=== PATIENT | female | born 1965 | race Two or more races ===

== ENCOUNTER 2017-07-28 15:11 | Emergency (ER) | payer OTHER ==
[2017-07-28 15:28] VITALS: TEMP 98.4; BMI 20.9
[2017-07-28] MEDS ORDERED: ASPIRIN 81 MG CHEWABLE TABLETS PO ONE (16:25)
--- NOTE | 2017-07-28 16:25 | PDOC ---
History of Present Illness - General Chief Complaint: Chest Pain Stated Complaint: CHEST PAIN Past History - Past Medical History Allergies/Adverse Reactions: Allergies Allergy/AdvReac Type Severity Reaction Status Date / Time No Known Allergies Allergy Verified 07/28/17 15:28 HTN: Yes - Suicide/Smoking/Psychosocial Hx Smoking History: Never smoked Have you smoked in the past 12 months: No Information on smoking cessation initiated: No Hx Alcohol Use: No Drug/Substance Use Hx: No Substance Use Type: None *Physical Exam - Vital Signs Last Vital Signs Temp Pulse Resp BP Pulse Ox 98.4 F 70 18 176/108 100 07/28/17 15:25 07/28/17 15:25 07/28/17 15:25 07/28/17 15:25 07/28/17 15:25
[2017-07-28] MEDS ORDERED: ASPIRIN 81 MG CHEWABLE TABLETS ONE (16:39)
--- NOTE | 2017-07-28 16:42 | PDOC ---
Attending Attestation - Resident Resident Name: Chris Vanel - ED Attending Attestation I have performed the following: I have examined & evaluated the patient, The case was reviewed & discussed with the resident, I agree w/resident's findings & plan, Exceptions are as noted - HPI HPI: 07/28/17 17:36 52 yo female presents because of intermittent "pinching" chest pain for several years and today she felt short of breath. She reports having a brief syncopal episode ( for a few seconds) yesterday -she came today with her who had a follow visit also at this hospital. she said she could get a ekg at her PCP on . she still has her regular monthly menses and described this episode as feeling suddenly very hot ,very flushed and dizzy. It lasted a short time. -she never had substernal chest pain 07/28/17 18:49 - Physicial Exam PE: 07/28/17 18:53 wnwd 52 yo female in no acute distress HEENT wnl lungs cta b/l cvs [id number] abd soft ,nontender ext no edema neuro no gross focal neuro deficits - Medical Decision Making 07/28/17 18:54 labs reviewed with pt ekg was nsr @ 68 bpm/negative trop -pt encouraged to followup with her PCP this week
[2017-07-28 17:04] LABS: BASOPHIL 0.6 % (0-2.0); EOSINOPHIL 3.3 % (0-4.5); MCH 30.7 pg (25.7-33.7); MCHC 32.7 g/dl (32.0-36.0); MEAN CELL VOLUME 93.7 fl (80-96); NEUTROPHILS 60.7 % (42.8-82.8); PLATELET COUNT 315 K/MM3 (134-434); RDW 13.9 % (11.6-15.6); WHITE BLOOD COUNT 9.5 K/mm3 (4.0-10.0)
[2017-07-28 17:05] LABS: URINE APPEARANCE CLEAR; URINE BILIRUBIN NEGATIVE (NEGATIVE); URINE BLOOD 1+ (NEGATIVE); URINE COLOR STRAW; URINE GLUCOSE (UA) NEGATIVE (NEGATIVE); URINE KETONE NEGATIVE (NEGATIVE); URINE NITRITE NEGATIVE (NEGATIVE); URINE PROTEIN NEGATIVE (NEGATIVE); URINE UROBILINOGEN NEGATIVE mg/dL (0.2-1.0)
[2017-07-28 17:09] LABS: URINE BACTERIA RARE /hpf (NONE SEEN); URINE RBC <1 /hpf (0-3); URINE WBC 1 /hpf (3-5)
[2017-07-28 17:24] LABS: INR 0.9 (0.82-1.09); PROTHROMBIN TIME (PATIENT) 10.2 SEC (9.98-11.88)
[2017-07-28 17:32] LABS: ALBUMIN 3.7 g/dl (3.4-5.0); ANION GAP 10 (8-16); BILIRUBIN,TOTAL 0.3 mg/dL (0.2-1.0); CALCIUM 8.6 mg/dL (8.5-10.1); CO2 26 mmol/L (21-32); CREATININE 0.6 mg/dL (0.55-1.02); GLUCOSE,RANDOM 97 mg/dL (74-106); MAGNESIUM 2.3 mg/dL (1.8-2.4); SGOT/AST 35 U/L (15-37); SGPT/ALT 79 U/L (12-78); TOT PROT 6.9 g/dl (6.4-8.2)
[2017-07-28 17:35] LABS: ALK PHOS 139 U/L (45-117); CPK 120 IU/L (26-192); TROPONIN I < 0.02 ng/ml (0.00-0.05)
--- NOTE | 2017-07-28 17:37 | PDOC ---
History of Present Illness - General Chief Complaint: Chest Pain Stated Complaint: CHEST PAIN Time Seen by Provider: 07/28/17 16:25 - History of Present Illness Initial Comments: 07/28/17 17:43 The patient is a 52 year old female with a history of HTN who presents for evaluation of SOB and chest pain. The patient reports intermittent "pinching" chest pain occurring at random without any exertional relationship over the past several years. She reports onset of sensation of SOB yesterday evening as well as a syncopal episode that lasted a few seconds. She denies any trauma and states that she felt extremely hot, flushed and sweaty immediately prior to the episode and denies any sensation of palpitations. She states that she has not been through menopause yet. She states that she would have gone to her primary care provider, however her was presenting to this ED for follow up and she wanted an ekg. She denies fevers, chills, abdominal pain, nausea, vomiting, or changes with urination or bowel movements. Past History - Past Medical History Allergies/Adverse Reactions: Allergies Allergy/AdvReac Type Severity Reaction Status Date / Time No Known Allergies Allergy Verified 07/28/17 15:28 Home Medications: Ambulatory Orders Ranitidine [Zantac -] 150 mg PO BID 07/28/17 Valsartan 160 mg PO DAILY 07/28/17 HTN: Yes - Suicide/Smoking/Psychosocial Hx Smoking History: Never smoked Have you smoked in the past 12 months: No Information on smoking cessation initiated: No Hx Alcohol Use: No Drug/Substance Use Hx: No Substance Use Type: None Review of Systems - Review of Systems Comments:: 07/28/17 17:53 Constitutional: No fevers, chills, fatigue, malaise HEENT: No Rhinorrhea, nasal congestion, visual changes Cardiovascular: Chest pain, syncope. No palpitations, lightheadedness Respiratory: SOB. No Cough, Hemoptysis, Gastrointestinal: No Abdominal pain, Nausea, Vomiting, Constipation, Diarrhea, Melena Genitourinary: No Dysuria, Frequency, Urgency, Hesitancy, Hematuria, Flank pain Musculoskeletal: No Myalgia, arthralgia Skin: No rashes, bruising, pallor Neurologic: No Headache, Dizziness, Numbness, Weakness, or Tingling *Physical Exam - Vital Signs Last Vital Signs Temp Pulse Resp BP Pulse Ox 98.4 F 66 18 150/84 100 07/28/17 15:25 07/28/17 16:57 07/28/17 16:57 07/28/17 16:57 07/28/17 16:57 - Physical Exam Comments: 07/28/17 17:54 General Appearance: Nourished. No Apparent Distress HEENT: EOMI, MARILU. No Pharyngeal Erythema, Tonsillar Exudate, Tonsillar Erythema Neck: No Cervical Lymphadenopathy Respiratory/Chest: Lungs Clear, Normal Breath Sounds. No Crackles, Rales, Rhonchi, Wheezing Cardiovascular: Regular Rhythm, Regular Rate. No Murmur, Gallops, Rubs Gastrointestinal/Abdominal: Normal Bowel Sounds, Soft. No Guarding, Rebound, Tenderness Musculoskeletal: No CVA Tenderness Extremity: No lower extremity swelling. Normal Capillary Refill Integumentary: Normal Color, Dry, Warm Neurologic: Fully Oriented, Alert, Normal Mood/Affect, Normal Response, ED Treatment Course - LABORATORY CBC & Chemistry Diagram: 07/28/17 16:45 07/28/17 16:45 - ADDITIONAL ORDERS Additional order review: Laboratory Results 07/28/17 07/28/17 16:45 16:45 PT with INR 10.20 INR 0.90 Urine Color Straw Urine Appearance Clear Urine pH 5.0 Urine Protein Negative Urine Glucose (UA) Negative Urine Ketones Negative Urine Blood 1+ H Urine Nitrite Negative Urine Bilirubin Negative Urine Urobilinogen Negative Urine RBC <1 Urine WBC 1 Ur Epithelial Cells Rare Urine Bacteria Rare 07/28/17 16:45 RBC 4.00 MCV 93.7 MCHC 32.7 RDW 13.9 MPV 8.0 Neutrophils % 60.7 Lymphocytes % 30.4 Monocytes % 5.0 Eosinophils % 3.3 Basophils % 0.6 - Medications Given in the ED: ED Medications Discontinued Medications Generic Name Dose Route Start Last Admin Trade Name Freq PRN Reason Stop Dose Admin Aspirin 162 mg 07/28/17 16:25 07/28/17 16:54 Asa - PO 07/28/17 16:26 162 mg ONCE ONE Administration Medical Decision Making - Medical Decision Making 07/28/17 17:56 The patient is a 52 year old female with a history of HTN who presents for evaluation of SOB and chest pain. Differential includes but is not limited to: Dehydration, Pneumonia, ACS, PE, musculoskeletal, infectious, metabolic derangement. Given the patient's history we have a lower suspicion for ACS, however we will obtain a cbc, cmp, EKG, troponin to evaluate. We will also obtain a chest plain film to evaluate for pneumonia or other etiologies of her symptoms. The patient is very lower risk for PE given the WELL's criteria as well. Given her symptoms of sudden onset warmth and flushness, it is likely the patient experienced a hot flash. We will continue to monitor and reassess. 07/28/17 18:49 Cbc, cmp, troponin are unremarkable. EKG was unremarkable. The patient's symptoms are likely due to a hot flash. We are comfortable discharging the patient home at this time with PCP follow up. We discussed the results and the plan with the patient and she voiced understanding and is agreeable with the plan. *DC/Admit/Observation/Transfer Diagnosis at time of Disposition: Dizziness - Discharge Dispostion Disposition: HOME Condition at time of disposition: Improved Admit: No - Referrals - Patient Instructions Printed Discharge Instructions: DI for Dizziness-Nonvertigo Additional Instructions: Please return to the ER if you experience worsening or concerning symptoms. Please call to follow up with your primary care provider to discuss your ER visit.
[2017-07-28 18:09] VITALS: BP 132/78; PULSE 62
[2017-07-28 20:46] LABS: URINE LEUK ESTERASE Negative (NEGATIVE)
--- NOTE | 2017-07-30 07:14 | EKG ---
Test Reason : Blood Pressure : / mmHG Vent. Rate : 068 BPM Atrial Rate : 068 BPM P-R Int : 154 ms QRS Dur : 078 ms QT Int : 422 ms P-R-T Axes : 067 050 026 degrees QTc Int : 448 ms NORMAL SINUS RHYTHM POSSIBLE LEFT ATRIAL ENLARGEMENT BORDERLINE ECG NO PREVIOUS ECGS AVAILABLE Confirmed by LUCINDA MARIA, BERTRAM ([id number]) on 07/30/2017 7:14:18 AM Referred By: Confirmed By:BERTRAM JANE MD
== END 2017-07-28 19:13 | disposition home or self-care (01) ==
LOC: JER 15:11
DX: R07.89 Other chest pain (principal); R42 Dizziness and giddiness
CPT/HCPCS: 36415; 71010-TC; 80053; 80061; 81003; 81015; 82550; 83721; 83735; 83880; 84484; 85025; 85610; 93005; 93010; 99285-25